=== PATIENT | female | born 1995 | race Caucasian/White ===

== ENCOUNTER 2018-07-12 05:18 | Inpatient (IN) ==
[2018-07-12] MEDS ORDERED: NALBUPHINE HCL 10 MG/ML AMPUL IV PRN ×2 (05:48)
[2018-07-12] MEDS ORDERED: LIDOCAINE HCL 50 ML VIAL PERI PRN (05:48)
[2018-07-12] MEDS ORDERED: OXYTOCIN/DEXTROSE 5%-WATER 30 UNITS/500 ML BAG IV ONE (05:48)
[2018-07-12] MEDS ORDERED: ONDANSETRON HCL/PF 2 MG/ML VIAL IV PRN ×3 (05:48→15:49)
[2018-07-12] MEDS ORDERED: RINGER'S SOLUTION,LACTATED 1,000 ML IV PRN (05:48)
[2018-07-12] MEDS ORDERED: RINGER'S SOLUTION,LACTATED 1,000 ML IV ONE ×2 (05:48→15:49)
[2018-07-12] MEDS ORDERED: NALOXONE HCL 1 MG/1 ML SYRG IV PRN (09:57)
[2018-07-12] MEDS ORDERED: BUPIVACAINE HCL/0.9 % NACL/PF 250 ML EP PRN (09:57)
[2018-07-12] MEDS ORDERED: fentaNYL CITRATE/PF 50 MCG/ML AMPUL IT SCH (10:00)
--- NOTE | 2018-07-12 10:58 | HP ---
Chief Complaint - Chief Complaint Date of Service: 07/12/18 Time of Service: 10:39 Chief Complaint: Labor History of Present Illness: The patient presents to labor and delivery in labor. She reports regular ctx. She denies VB or LOF. Fetus is active. Medical History (Last Reviewed 03/04/18 @ 11:38 by Taryn Nevarez) and not yet delivered (Acute) Breast feeding status of mother No significant past surgical history Mastitis Onset Date: 07/12/17 Family History: Family History (Last Reviewed 02/03/18 @ 11:04 by Brenda Alexandra RN) Grandfather Myocardial infarction Mother Rheumatoid arthritis Social History: Preferred Language Gren[place] Abuse History No History of abuse Psych History No pertinent hx (Last Updated 07/10/18 @ 10:09 by Sofia Castro MD) No Social History Section defined Review Of Systems (GEN) - Review of Systems Misc: All systems neg except as marked Immunizations: IMMUNIZATION HX Immunizations Up to Date Yes History of Influenza Vaccine No Hx Pneumococcal Vaccination No Allergies/Adverse Reactions: Allergies Allergy/AdvReac Type Severity Reaction Status Date / Time Iodine and Iodide Containing Allergy Verified 07/10/18 09:12 Produc shellfish derived Allergy Verified 07/10/18 09:12 Home Medications: HOME MEDICATIONS Pnv No.95/Ferrous Fum/Folic AC [ Multivitamin Tablet] 1 ea PO DAILY 01/09/18 [Last Taken Unknown] Exam - Exam Vital Signs: 129/79 115 22 36.3 Celcius Constitutional: Present: Alert, Oriented x3, Cooperative, No distress Respiratory: Present: lungs clear, normal breath sounds Cardiovascular/Chest: Present: regular rate, rhythm, no murmur Abdomen: Present: soft, nontender, nondistended Extremity: Present: non-tender, no calf tenderness, pedal edema Skin Exam: Present: normal color, warm/dry, no cyanosis Appearance: Present: appropriate appearance Eye contact: Present: cooperative Thoughts: Present: normal thought pattern Diagnostic Studies: Laboratory Results Blood Type O Positive 07/12/18 06:00 Antibody Screen Negative 07/12/18 06:00 Assessment/Plan - Narrative Narrative: 22 yo @ 42w 0d who presented in labor The patient has been noncompliant with recommendations her last few visits. I recommended IOL after 41 weeks due to the risk of stillbirth as well as other associated risks, including but not limited to, higher risk of macrosomia, delivery, meconium stained amniotic fluid, PPH, prolonged labor. The patient declined induction several times. I also recommended the patient to have an KARSON to be done 07/11/2018 which the patient did not do. On admission to L&D the patient initially declined to have an IV or any monitoring on her fetus. Eventually she did consent to have an IV placed. I explained to the patient that due to her lack of labor progression and the heart tracing abnormalities I recommended either AROM or pitocin augmentation. The patient stated "no we do not have to do either one". Again eventually she agreed to AROM. Her cervical exam was 7/100/-1, AROM for thick meconium. The patient desires an epidural and thus she received a fluid bolus. The patient is currently receiving an epidural. I anticipate that the patient will be complete after the epidural. The FHT is cat 2 due to nonrecurrent variable decelerations Anticipate
--- NOTE | 2018-07-12 11:16 | ANES ---
Post Anesthesia Assessment - Vital Signs Vitals: Last Vital Signs Temp 36.1 C 07/12/18 11:01 Pulse 98 07/12/18 11:01 Resp 20 07/12/18 11:01 BP 121/60 07/12/18 11:01 Pulse Ox 99 07/12/18 10:43 Airway Patency: Normal - Mental Status Level Of Consciousness: Awake - Pain Level Pain Score: 2 - N/V Assessment Nausea/Vomiting Presence: None Dehydration:: No
--- NOTE | 2018-07-12 11:16 | ANES ---
Anesthesia Pre Procedure Eval Vitals/Labs: Last Vital Signs Temp 36.1 C 07/12/18 11:01 Pulse 98 07/12/18 11:01 Resp 20 07/12/18 11:01 BP 121/60 07/12/18 11:01 Pulse Ox 99 07/12/18 10:43 HOME MEDICATIONS Pnv No.95/Ferrous Fum/Folic AC [ Multivitamin Tablet] 1 ea PO DAILY 01/09/18 [Last Taken Unknown] Allergies/Adverse Reactions: Allergies Allergy/AdvReac Type Severity Reaction Status Date / Time Iodine and Iodide Containing Allergy Verified 07/10/18 09:12 Produc shellfish derived Allergy Verified 07/10/18 09:12 - Planned Procedure Planned Procedure: ACTIVE LABOR Medication List Reviewed:: Yes Allergies Verified: Yes Medical History (Last Reviewed 07/12/18 @ 11:15 by Jacques Schaefer CRNA) and not yet delivered (Acute) Breast feeding status of mother No significant past surgical history Mastitis Onset Date: 07/12/17 Family History (Last Reviewed 07/12/18 @ 11:15 by Jacques Schaefer CRNA) Grandfather Myocardial infarction Mother Rheumatoid arthritis - Family Anesthesia History Family History:: no untoward family reactions to anesthesia - Airway/Neck/Teeth Within Normal Limits:: Yes Teeth Condition: intact Denture Type: None Mallampatti Score: 2 Thyromental (T-M) distance: > 6 cm Mandibulo Hyoid distance: > 3 cm - Respiratory Respiratory Physical: lungs clear Smoking Status: Never smoker Sleep Apnea currently treated: No Sleep Apnea by current assessment: No - Cardiovascular Tolerate Activity: Good Heart Sounds: S1 & S2, Regular - Anesthesia Assessment and Plan ASA Class: PS, II, E Anesthesia Type Plan: Epidural Planned difficult intubation/equipment available: No
--- NOTE | 2018-07-12 11:16 | ANES ---
Post Anesthesia Discharge - Transfer of Care Transfer of Care handoff given to nurse: Yes - Anesthesia Post Op Note Anesthesia Post Op Note: Care transferred to OB RN
--- NOTE | 2018-07-12 11:18 | ANES ---
Anesthesia Procedure Note Procedure Note: ANESTHESIA PROCEDURE NOTE Date of Procedure: [] 07/12/2018 Time of procedure:[]. 1040 Performed by: Drew Schaefer CRNA Cut Lace Machine Operator: None. Preprocedure diagnosis: Active labor. Post procedure diagnosis: Same. Procedure: Insertion of labor epidural. Indications: The patient is a [22] -year-old [multigravida] female in active labor requesting labor epidural for pain management. Findings: See below. Details of the procedure: The patient was placed in a sitting position. Back was prepped with ChloraPrep. Patient was then draped in a sterile fashion. Lidocaine 1% was infiltrated to the skin and subcutaneous tissues at the level of the L3 4 interspace. The epidural space was identified using a 18-gauge Tuohy needle with [id number] technique. 20 mcg fentanyl was given intrathecally using a 27 ga. spinal needle. Epidural catheter was inserted without difficulty. Negative test dose was elicited using 5 mL of 1.5% preservative-free lidocaine plus epinephrine 1 200,000. The epidural catheter was then taped and secured in place. EBL: Minimal. Fluids: N/A. Specimen: N/A. Post procedure condition: The patient tolerated the procedure well. No complications were noted. Thank you for this consultation. Vasquez CRNA
[2018-07-12] MEDS ORDERED: TERBUTALINE SULFATE 1 MG/ML VIAL ONE (14:03)
[2018-07-12] MEDS ORDERED: TERBUTALINE SULFATE 1 MG/ML VIAL SC ONE (14:03)
[2018-07-12] MEDS ORDERED: ceFAZolin SODIUM/DEXTROSE,ISO 2 GM/50 ML BAG IV ONE (14:45)
[2018-07-12] MEDS ORDERED: OXYTOCIN 20 UNITS in RINGER'S SOLUTION,LACTATED 1,000 ML IV ONE ×2 (14:45→15:49)
--- NOTE | 2018-07-12 14:47 | PN ---
Progesdaphnie Note - Interim Date: 07/12/18 Time: 14:47 Narrative: 07/12/18 14:47 Attempted vacuum extraction which was unsuccessful. Proceed with delivery
--- NOTE | 2018-07-12 14:57 | ANES ---
Anesthesia Pre Procedure Eval Vitals/Labs: Last Vital Signs Temp 36.1 C 07/12/18 11:01 Pulse 98 07/12/18 11:01 Resp 20 07/12/18 11:01 BP 121/60 07/12/18 11:01 Pulse Ox 99 07/12/18 10:43 HOME MEDICATIONS Pnv No.95/Ferrous Fum/Folic AC [ Multivitamin Tablet] 1 ea PO DAILY 01/09/18 [Last Taken Unknown] Allergies/Adverse Reactions: Allergies Allergy/AdvReac Type Severity Reaction Status Date / Time Iodine and Iodide Containing Allergy Verified 07/10/18 09:12 Produc shellfish derived Allergy Verified 07/10/18 09:12 - Planned Procedure Planned Procedure: Medical History (Last Reviewed 07/12/18 @ 14:57 by Jacques Schaefer CRNA) and not yet delivered (Acute) Breast feeding status of mother No significant past surgical history Mastitis Onset Date: 07/12/17 Family History (Last Reviewed 07/12/18 @ 14:57 by Jacques Schaefer CRNA) Grandfather Myocardial infarction Mother Rheumatoid arthritis - Family Anesthesia History Family History:: no untoward family reactions to anesthesia - Airway/Neck/Teeth Within Normal Limits:: Yes Teeth Condition: intact Denture Type: None Mallampatti Score: 2 Thyromental (T-M) distance: > 6 cm Mandibulo Hyoid distance: > 3 cm - Respiratory Respiratory Physical: lungs clear Smoking Status: Never smoker Sleep Apnea currently treated: No Sleep Apnea by current assessment: No - Cardiovascular Tolerate Activity: Good Heart Sounds: S1 & S2, Regular - Anesthesia Assessment and Plan ASA Class: PS, II, E Anesthesia Type Plan: Epidural Planned difficult intubation/equipment available: No
[2018-07-12] MEDS ORDERED: KETOROLAC TROMETHAMINE 30 MG/ML VIAL IV PRN (15:49)
[2018-07-12] MEDS ORDERED: SENNOSIDES 8.6 MG TABLET PO PRN (15:49)
[2018-07-12] MEDS ORDERED: SIMETHICONE 80 MG TAB.CHEW PO PRN (15:49)
[2018-07-12] MEDS ORDERED: BISACODYL 10 MG SUPP.RECT RC PRN (15:49)
[2018-07-12] MEDS ORDERED: diphenhydrAMINE HCL 25 MG CAPSULE PO PRN (15:49)
--- NOTE | 2018-07-12 15:59 | OR ---
Operative Report - Dictated Report Narrative: Date of delivery: 07/12/2018 Time of delivery: 1526 Gender: female weight: 3909 grams APGARS: 9/9 Preoperative diagnosis: IUP @ 42w 0d, meconium stained amniotic fluid, unsuccessful vacuum extraction, nonreassuring heart tracing Postoperative diagnosis: same Procedure: primary delivery Surgeon: Dr. Castro Anesthesia: epidural Anesthesiologist: Drew Schaefer CRNA Indications for the procedure: The patient is a 22 yo @ 42w 0d who pres ented to labor and delivery in labor. Labor progression was abnormal. The patient received AROM for augmentation. She progressed to complete dilation and +3 station. Attempt at vacuum extraction was unsuccessful and thus a delivery was performed. All risks, benefits, and alternatives of the procedure were explained to the patient and the patient consented to the procedure. Description of the procedure: The patient was taken to the operating room where epidural anesthesia was found to be adequate. She was then prepped and draped in the supine position in the standard surgical fashion. A Pfannestiel skin incision was made. The incision was carried through the subcutaneous tissue. The fascia was incised in the midline. The fascia was dissected off the underlying rectus muscles. The peritoneum was entered bluntly. A large Gallito retractor was placed. The lower uterine incision was incised in a low transverse fashion. The uterine incision was extended bluntly. The head was delivered. The rest of the infant was delivered atraumatically and handed off to the attending pediatric staff. Thick meconium was noted. The uterine incision was closed with a locking 0-vicryl suture. The fascia was closed with 1-0 vicryl. The skin was closed with 3-0 monocryl on a Antoine needle. Dermabond was placed over the incision. EBL: 700 mL Complications: none Definition: * The number of deliveries resulting in a live the patient experienced prior to current hospitalization * The previous delivery of live twins or any live multiple gestation is considered one live event. *If primagravida or nulliparous is documented select zero for the number of previous live births. Live births: 1
[2018-07-12] MEDS: HYDROcodone/ACETAMINOPHEN 1 EACH TABLET PO PRN ×2 (17:34→20:16)
[2018-07-12] MEDS: IBUPROFEN 800 MG TABLET PO PRN ×2 (17:35→23:37)
--- NOTE | 2018-07-12 18:19 | ANES ---
Post Anesthesia Assessment - Vital Signs Vitals: Last Vital Signs Temp 36.9 C 07/12/18 17:53 Pulse 100 07/12/18 17:53 Resp 20 07/12/18 17:53 BP 122/58 07/12/18 17:53 Pulse Ox 99 07/12/18 17:53 Airway Patency: Normal - Mental Status Level Of Consciousness: Awake - Pain Level Pain Score: 0 - N/V Assessment Nausea/Vomiting Presence: None Dehydration:: No
--- NOTE | 2018-07-12 18:19 | ANES ---
Post Anesthesia Discharge - Transfer of Care Transfer of Care handoff given to nurse: Yes - Discharge from PACU Discharge from PACU when meets criteria: Yes
--- NOTE | 2018-07-12 18:24 | ANES ---
Anesthesia Procedure Note Procedure Note: ANESTHESIA PROCEDURE NOTE Date of procedure:[]. 07/12/2018 Time of procedure:[]. 1600 Performed by: Drew Schaefer CRNA Investment Sales Assistant: [] Carol Ragland RN . Preprocedure diagnosis: []. Status post . Desire for postoperative analgesia Post procedure diagnosis: Same. Procedure:[] Ultrasound-guided bilateral tap block Indications: []. Postoperative analgesia Findings: [] Patient placed in a supine position in the PACU. Patient's right abdominal wall was prepped with ChloraPrep. Ultrasound was utilized to identify the fascial layer between the internal oblique trans-abdominus muscles. A 4 inch 20-gauge regional block needle was advanced under ultrasound guidance until tip of needle was positioned just posterior to the fascial layer. 20 mL of 0.25% Marcaine with epinephrine 1 200,000 was injected and adequate spread of local anesthesia noted. Procedure was repeated on patient's left side. EBL: Minimal. Fluids: N/A. Specimen: N/A. Post procedure condition: The patient tolerated the procedure well. No complications were noted. Thank you for this consultation Drew Schaefer CRNA
[2018-07-12] MEDS: DOCUSATE SODIUM 100 MG CAPSULE PO SCH (23:37)
[2018-07-13] MEDS: HYDROcodone/ACETAMINOPHEN 1 EACH TABLET PO PRN ×6 (00:28→21:55)
[2018-07-13] MEDS: IBUPROFEN 800 MG TABLET PO PRN ×3 (06:03→20:53)
[2018-07-13] MEDS: DOCUSATE SODIUM 100 MG CAPSULE PO SCH ×2 (08:17→20:24)
--- NOTE | 2018-07-13 09:46 | PN ---
Subjective - Date and Time Seen Date: 07/13/18 Time: 09:43 Subjective Narrative: Pt without complaints Objective Objective Narrative: See vital signs - Review of Systems Generalized/Overall Review: Reports: No Symptoms Reported Misc: All systems neg except as marked - Vitals Vitals: Last Vital Signs Temp 36.8 C 07/13/18 07:00 Pulse 89 07/13/18 07:00 Resp 16 07/13/18 07:00 BP 119/67 07/13/18 07:00 Pulse Ox 98 07/13/18 07:00 - Exam Constitutional: Present: Alert, Oriented x3, Cooperative, No distress Abdomen: Present: soft, nontender, nondistended - incision c/d/i Extremity: Present: non-tender, no calf tenderness, pedal edema Skin Exam: Present: normal color, warm/dry, no cyanosis Appearance: Present: appropriate appearance Eye contact: Present: cooperative Thoughts: Present: normal thought pattern Cauti Physician Documentation - Urinary Catheter Management Urethral (Katz) Urethral Indwelling: No Date of Insertion: 07/12/18 Time of Insertion: 15:00 Date of Removal: 07/13/18 Time of Removal: 03:53 Assessment/Plan Plan Narrative: POD 1 s/p primary delivery Doing well Discharge POD 3
[2018-07-14] MEDS: HYDROcodone/ACETAMINOPHEN 1 EACH TABLET PO PRN ×5 (02:23→22:50)
[2018-07-14] MEDS: IBUPROFEN 800 MG TABLET PO PRN ×3 (04:59→20:00)
[2018-07-14] MEDS: DOCUSATE SODIUM 100 MG CAPSULE PO SCH ×2 (08:56→20:00)
--- NOTE | 2018-07-14 13:22 | PN ---
Subjective - Date and Time Seen Date: 07/14/18 Time: 13:20 Subjective Narrative: Pt without complaints Objective Objective Narrative: See vital signs - Review of Systems Generalized/Overall Review: Reports: No Symptoms Reported Misc: All systems neg except as marked - Vitals Vitals: Last Vital Signs Temp 36.1 C 07/14/18 09:03 Pulse 100 07/14/18 09:03 Resp 18 07/14/18 09:03 BP 123/74 07/14/18 09:03 Pulse Ox 97 07/14/18 09:03 - Exam Constitutional: Present: Alert, Oriented x3, Cooperative, No distress Abdomen: Present: soft, nontender, nondistended - incision c/d/i Extremity: Present: non-tender, no calf tenderness, pedal edema Skin Exam: Present: normal color, warm/dry, no cyanosis Appearance: Present: appropriate appearance Eye contact: Present: cooperative Thoughts: Present: normal thought pattern Cauti Physician Documentation - Urinary Catheter Management Urethral (Katz) Urethral Indwelling: No Date of Insertion: 07/12/18 Time of Insertion: 15:00 Date of Removal: 07/13/18 Time of Removal: 03:53 Assessment/Plan Plan Narrative: POD 2 s/p delivery Doing well Discharge home
[2018-07-15] MEDS: HYDROcodone/ACETAMINOPHEN 1 EACH TABLET PO PRN ×3 (04:18→11:03)
[2018-07-15] MEDS: DOCUSATE SODIUM 100 MG CAPSULE PO SCH ×2 (07:54→10:16)
[2018-07-15] MEDS: IBUPROFEN 800 MG TABLET PO PRN (07:54)
[2018-07-15 08:19] VITALS: BP 131/67
--- NOTE | 2018-07-15 11:43 | PN ---
Subjective - Date and Time Seen Date: 07/15/18 Time: 11:41 Subjective Narrative: Pt without complaints Objective Objective Narrative: See vital signs - Review of Systems Generalized/Overall Review: Reports: No Symptoms Reported Misc: All systems neg except as marked - Vitals Vitals: Last Vital Signs Temp 36.7 C 07/15/18 08:00 Pulse 81 07/15/18 08:00 Resp 16 07/15/18 08:00 BP 131/67 07/15/18 08:00 Pulse Ox 99 07/15/18 08:00 - Exam Constitutional: Present: Alert, Oriented x3, Cooperative, No distress Abdomen: Present: soft, nontender, nondistended - incision c/d/i Extremity: Present: non-tender, no calf tenderness, pedal edema Skin Exam: Present: normal color, warm/dry, no cyanosis Appearance: Present: appropriate appearance Eye contact: Present: cooperative Thoughts: Present: normal thought pattern Cauti Physician Documentation - Urinary Catheter Management Urethral (Katz) Urethral Indwelling: No Date of Insertion: 07/12/18 Time of Insertion: 15:00 Date of Removal: 07/13/18 Time of Removal: 03:53 Assessment/Plan Plan Narrative: POD 3 s/p delivery Doing well Discharge home
== END 2018-07-15 12:35 | disposition home or self-care (01) | DRG 788 ==
LOC: OBCLINIC 05:18 → OB 05:23 → MS 07-14 10:04
PROVIDERS: ADMIT Obstetrics & Gynecology; ATTEND Obstetrics & Gynecology
CPT/HCPCS: 59025; 86850; 86900; 88307